=== PATIENT | female | born 1975 | race Caucasian/White ===

== ENCOUNTER → 2017-11-23 20:18 | Outpatient (REF) | payer BC, SELFPAY | LOC: LAB 20:18 | PROVIDERS: Visit Provider Nurse Practitioner Family | DX: J02.9 Acute pharyngitis, unspecified (principal) ==

== ENCOUNTER → 2021-08-05 15:22 | Outpatient (CLI) | payer BC, SELFPAY ==
--- NOTE | 2021-08-05 15:29 | MM_ITS ---
PROCEDURE INFORMATION: Exam: Bilateral Screening 3D Mammography Exam date and time: 08/05/2021 3:25 PM Age: 45 years old Clinical indication: Baseline. A maternal aunt had breast cancer. TECHNIQUE: Imaging protocol: Bilateral Screening tomosynthesis and 2D mammography including computer-aided detection (CAD) when performed. COMPARISON: No relevant prior studies available. FINDINGS: MAMMOGRAPHY: Breast composition: The breasts are heterogeneously dense, which may obscure small masses. Mass: Possible oval 1.0 partly circumscribed, partly imaged, mass in the right upper outer quadrant posterior 3rd, seen in the CC projection frame 35 and may project in the upper breast, MLO frame 36. Architectural distortion: None. Calcifications: No suspicious calcifications. Asymmetric density: None. Skin thickening: None. Axillary adenopathy: None. IMPRESSION: Patient to be recalled for right diagnostic spot compression in the CC projection, with full field true lateral, and right breast ultrasound for further evaluation of possible right breast mass. ASSESSMENT: BI-RADS Category 0: Incomplete- Need Additional Imaging Evaluation and/or Prior Mammograms for Comparison
== END ==
LOC: RAD 15:25 → RT 15:53
PROVIDERS: PCP Family Medicine; Visit Provider Obstetrics & Gynecology
DX: Z12.31 Encounter for screening mammogram for malignant neoplasm of breast (principal)
CPT/HCPCS: 77063; 77067

== ENCOUNTER → 2021-10-09 14:27 | Outpatient (CLI) | payer BC, SELFPAY ==
--- NOTE | 2021-10-09 14:35 | US_ITS ---
PROCEDURE INFORMATION: Exam: US Right Breast, Complete MG Right Diagnostic Breast Tomosynthesis Exam date and time: 10/09/2021 2:56 PM Age: 46 years old Clinical indication: Patient recalled on the basis of a screening mammogram for further evaluation; Right breast; mass TECHNIQUE: Imaging protocol: Complete ultrasound of all four quadrants of the Right breast and the retroareolar regions, including ultrasound of the axilla when performed. Right Diagnostic tomosynthesis and 2D mammography including computer-aided detection (CAD) when performed. Unilateral or bilateral exam. COMPARISON: MG MM DIG MAMM DX UNILAT RT CAD 10/09/2021 2:30 PM FINDINGS: MAMMOGRAPHY: digital diagnostic spot compression views of the right breast and 90 degree lateral view of the right breast demonstrates a persistent round 1.0 cm mass in the middle to posterior third of the right upper outer quadrant better seen in the craniocaudal projection. Questionable adjacent lobulated 1.2 cm mass in the posterior third of the right lateral breast lateral to the identified abnormality on mammography does not appear to persist on additional imaging. ULTRASOUND: Sonographic images of the right breast including the retroareolar region, all 4 quadrants and the axilla demonstrates a lobulated hypoechoic solid mass in the 10 o'clock axis 7 cm from the nipple questionably corresponding to the mass mammography. Few scattered subcentimeter cysts are noted throughout the right breast. No architectural distortion or acoustical shadowing. No skin thickening or axillary adenopathy. IMPRESSION: Indeterminate solid mass in the right upper outer quadrant. Given its partially circumscribed margins, ultrasound-guided core biopsy is recommended to ensure a benign etiology . Clip placement and post biopsy right mammogram are recommended to ensure accurate correlation. ASSESSMENT: BI-RADS Category 4: Suspicious
== END ==
PROVIDERS: PCP Family Medicine; Visit Provider Obstetrics & Gynecology
DX: R92.8 Other abnormal and inconclusive findings on diagnostic imaging of breast (principal)
CPT/HCPCS: 76641; 77061; 77065; G0279

== ENCOUNTER → 2021-10-31 08:18 | Outpatient (CLI) | payer BC, SELFPAY ==
--- NOTE | 2021-10-31 08:19 | US_ITS ---
FINAL REPORT CLINICAL HISTORY: Right breast nodule FINDINGS: ULTRASOUND-GUIDED RIGHT BREAST CORE BIOPSY TECHNIQUE: Limited images were obtained to localize region of interest. The right breast was prepped in a routine sterile fashion and locally anesthetized with 1% lidocaine. Standard written informed consent was obtained. The biopsy needle was positioned within the outer periphery of the lesion. A total of 3 passes were made with a 18 gauge core biopsy needle. Upon firing of the needle, images documented the needle passing through the nodule of interest. A biopsy marker clip was deployed in satisfactory position. Postbiopsy mammogram showed postbiopsy changes with clip in satisfactory position. Procedure was well tolerated . CONCLUSION: 1. Technically successful ultrasound guided core biopsy of right breast lesion as above. 2. Biopsy marker clip deployed Authenticated and ERN
--- NOTE | 2021-10-31 09:06 | MM_ITS ---
FINAL REPORT CLINICAL HISTORY: . clip placement s/p bx FINDINGS: MAMMOGRAM RIGHT TECHNIQUE: Standard digital 2-D views COMPARISON: Recent abnormal mammograms dated 10/09/2021 and 08/05/2021 DENSITY: The breasts are heterogeneously dense, which may obscure small masses. FINDINGS: Post biopsy marker clip is noted to be in satisfactory position associated with a partially obscured nodule in the posterior right breast at 10:00.. Postbiopsy changes are noted. IMPRESSION: Biopsy marker clip in good position RECOMMENDATION: Pending histopathology evaluation Authenticated and ERN
== END ==
PROVIDERS: PCP Family Medicine; Visit Provider Surgery
DX: R92.8 Other abnormal and inconclusive findings on diagnostic imaging of breast (principal); N63.11 Unspecified lump in the right breast, upper outer quadrant
CPT/HCPCS: 19083; 77065

== ENCOUNTER 2022-08-15 17:14 | Emergency (ER) | payer OTHER, BC, SELFPAY ==
[2022-08-15 17:14] VITALS: BP 147/89; PULSE 80; RESP 20; TEMP 36.8; O2SAT 98; BMI 24.9
--- NOTE | 2022-08-15 17:32 | PC.NURSE ---
FAST exam completed by attending. FAST is negative
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
[2022-08-15 17:48] LABS: Basophils # 0.1 K/mm3 (0-0.2); Basophils % 0.6 % (0.1-2.0); Eosinophils # 0.5 K/mm3 (0.0-0.4); Eosinophils % 4.6 % (0.1-12.0); Hematocrit 42.3 % (37.0-47.0); Hemoglobin 14.3 g/dL (12.2-16.2); Lymphocytes % 26.7 % (10-50); Mean Corpuscular HGB Conc 33.8 g/dL (31.8-35.4); Mean Corpuscular Hemoglobin 30.3 pg (27.0-31.2); Mean Corpuscular Volume 89.7 fl (81-99); Mean Platelet Volume 8.1 fl (7.4-10.4); Monocytes # 0.6 K/mm3 (0.1-1.0); Monocytes % 5.3 % (1.7-9.3); Neutrophils # 6.9 K/mm3 (1.8-7.8); Neutrophils % 62.8 % (37.0-80.0); Platelet Count 274 K/mm3 (142-424); Red Blood Count 4.72 M/mm3 (4.20-5.40); Red Cell Distribution Width 12.7 % (11.5-17.5)
[2022-08-15 17:53] LABS: Chloride 104 mmol/L (98-107)
[2022-08-15 17:54] LABS: Potassium 3.9 mmoL/L (3.5-5.1); Sodium 138 mmol/L (136-145)
[2022-08-15 17:56] LABS: Alanine Aminotransferase 32 U/L (12-78); Alkaline Phosphatase 61 U/L (38-126); Aspartate Amino Transferase 30 U/L (14-36); Bilirubin,Total 0.6 mg/dl (0.2-1.3); Blood Urea Nitrogen 13 mg/dl (7-17); Creatinine Clearance Estimated 93 mL/min (50-200); Estimated Glomerular Filt Rate 78 ml/min (>60); GFR (African American) 94 ML/MIN (>60)
[2022-08-15 17:57] LABS: Albumin Level 4.4 g/dl (3.5-5.0); Albumin/Globulin Ratio 1.4 (1.1-1.8); Amylase 87 U/L (30-110); Anion Gap 12.9 mEq/L (5-15); Calcium 8.8 mg/dl (8.4-10.2); Carbon Dioxide 25 mmol/L (22.0-30.0); Globulin 3.1 g/dL (1.3-3.2); Glucose 99 mg/dl (74-100); Lipase 105 U/L (23-300); Total Protein,Serum 7.5 g/dl (6.3-8.2)
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
[2022-08-15 19:18] VITALS: BP 132/84; PULSE 81; RESP 20; TEMP 36.7
== END 2022-08-15 19:24 | disposition home or self-care (01) ==
PROVIDERS: Emergency Provider Student in an Organized Health Care Education/Training Program; PCP Family Medicine
DX: S30.1XXA Contusion of abdominal wall, initial encounter (principal); V43.52XA Car driver injured in collision with other type car in traffic accident, initial encounter
CPT/HCPCS: 71275; 73110; 74174; 80053; 82150; 83690; 85025; 96361; 96374; 96375; 99285; J2405; Q9967

== ENCOUNTER → 2022-10-18 08:04 | Outpatient (CLI) | payer BC, SELFPAY ==
--- NOTE | 2022-10-18 08:09 | MR_ITS ---
PROCEDURE INFORMATION: Exam: MR Abdomen Without and With Contrast; Liver Exam date and time: 10/18/2022 8:31 AM Age: 47 years old Clinical indication: Abnormal findings; Abnormal radiologic finding of the abdomen; Radiologic exam and body structure: CT angio abdomen/pelvis; Additional info: Liver lesion showen on CT exam. 14 ml prohance given TECHNIQUE: Imaging protocol: MR Abdomen with and without intravenous contrast. Exam focused on the liver. Contrast material: PROHANCE; Contrast volume: 14 ml; Contrast route: IV; COMPARISON: CT ANGIO ABDOMEN PELVIS 08/15/2022 5:54 PM FINDINGS: Liver: There is a 1.3 cm T2 hyperintense lesion seen posteriorly in the right lobe. This enhances homogeneously on the early phase following contrast administration. No other liver lesions are identified. Gallbladder and bile ducts: Normal gallbladder. No biliary ductal dilatation. Pancreas: Normal. Kidneys and ureters: Normal kidneys. Visualized ureters are unremarkable. Intraperitoneal space: No free fluid. IMPRESSION: 1.3 cm right hepatic lesion with MR findings most consistent with a flash enhancing hemangioma.
== END ==
PROVIDERS: PCP Family Medicine; Visit Provider Family Medicine
DX: K76.9 Liver disease, unspecified (principal)
CPT/HCPCS: 74183; A9576

== ENCOUNTER 2024-09-14 14:59 | Outpatient (CLI) | payer BC, SELFPAY ==
--- OUTSIDE RECORDS SUMMARY | 2024-01-19 06:45 | XMS_ITS ---
Author Organization [facility] Address [address] [facility] [address] [place] [id number] Care Team Providers Care Mortgage Consultant Name Role Phone Kait Roach Primary Care Provider Evaristo Navarrete [phone] Allergies Allergen (clinical drug ingredient) Drug/Non Drug Allergy documented on EMR Reaction Allergy Type Onset Date Status amoxicillin Amoxicillin hives, itch Drug Allergy A ctive Results Component Value Reference Range Notes Urinalysis - Inhouse Reviewed date:01/19/2024 12:02:26 PM Interpretation: Performing Lab: Notes/Report: Color/Clarity yellow/cloudy Leuk 1+ Nitrite neg Urobili 16 Protein neg pH 6.0 Blood neg Sp. Gr. 1.020 Ketone neg Bili neg Gluc neg REASON FOR VISIT possible kidney infection Medications Medication SIG (Take, Route, Frequency, Duration) Notes Start Date End Date Status Mirena (52 MG) 20 MCG/DAY by intrauteral administration; Duration: 1 dose(s) Active Flonase Allergy Relief 50 MCG/ACT 1 spray(s) intranasally once a day 04/15/2017 Not-Taking Ciprofloxacin HCl 500 MG 1 tablet Orally every 12 hrs 01/19/2024 Active Meloxicam 15 MG 1 tablet Orally Once a day 01/19/2024 Active Problems Problem Type SNOMED Code ICD Code Onset Dates Problem Status W/U Status Risk Notes Problem Sacroiliitis (72894252) Sacroiliitis (M46.1) Active confirmed Vital Signs Blood pressure systolic 120 mm Hg 01/19/20 24 Blood pressure diastolic 84 mm Hg 024 Heart Rate 79 /min 01/19/2024 Height 60 in 01/19/2024 Weight 163 lbs 01/19/2024 BMI 31.83 kg/m2 01/19/2024 Encounters Encounter Location Date Provider Diagnosis [facility] [address] [facility] [address] [place] [id number] 01/19/2024 Evaristo Navarrete UTI (lower urinary tract infection) N39.0 and Sacroiliitis M46.1 Assessments Encounter Date Diagnosis (ICD Code) Assessment Notes Treatment Notes Treatment Clinical Notes Section Notes 01/19/2024 UTI (lower urinary tract infection) (ICD-10 - N39.0) 01/19/2024 Sacroiliitis (ICD-10 - M46.1) Findings on UA did not seem to be significant enough to account for her back pain. Likely has some inflammation of the SI joints. Plan Of Treatment Medication Medication Name Sig Start Date Stop Date Notes Ciprofloxacin HCl 500 MG 1 tablet Orally every 12 hrs 12/31 Meloxicam 15 MG 1 tablet Orally Once a day 01/19/2024 Treatment Notes Assessment Notes Sacroiliitis Findings on UA did n ot seem to be significant enough to account for her back pain. Likely has some inflammation of the SI joints. Next Appt Details Follow Up: 2 Weeks, Beryl hsieh son: Progress Notes * DANIELLE CARTAGENADOB:1975 (49 yo F)Acc No.[id number]:01/19/2024 Progress Notes Patient: DANIELLE PEREZ Provider: Evaristo Navarrete M.D. :1975 A ge:48 Y S ex:Female Date:01/19/2024 Address:[address] [place], [place] [id number] Pcp:Kait Roach Subjective: * Chief Complaints: * 1 . Possible kidney infection. * HPI: U rology: 48 year old female presents with c/o flank pain P t presents today with c/o pain in the right side that started about a month ago. Pt sts that the pain has moved down into her low back. Pt sts that the pain is sometimes dull but was sharp all night last night causing her to be unable to sleep. Pt sts that she is just not able to get any relief. Denies : frequent urination. D enies : burning sensation.?Denies : urgency. D enies : suprapubic pain. H PI: She started about a month ago with right flank pain with no history of injury. The pain was significant enough to limit her activity for a few days but but now seems to have settled into her lower back bilaterally but not as severe. It is not related to any particular activity and does not limit her activity. She denies dysuria, urgency, frequency, or hematuria. * ROS: D ERMATOLOGY: no R michael. n o H alannah. G ASTROENTEROLOGY: no N ausea. n o V omiting. n o D iarrhea.? U ROLOGY: no D ifficulty urinating. n o B lood in urine. * Medical History: R heumatic fever. * Surgical History: D &C . * Hospitalization/Major Diagno stic Procedure: [facility] ER-Chest Pains 07/02/08, [facility] ER Chest Pains 07/03/08. * Family History: F ather: alive, heart attack in 1997. M other: alive. 2 brother(s) , 2 sister(s) . .? * Social History: C URRENT TOBACCO USE S moking Status: Patient does NOT smoke. C affeine: yes, frequency: not regularly. Home smoke detector use: yes. Marital Status: . 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 Past smoking status: no, Smoking status: Does not smoke. Alcohol: Yes, Frequency: socially, very seldom. Sexually active: yes. Travel ouside [place]: no. * Medications: T aking Mirena (52 MG) 20 MCG/DAY Intrauterine Device by intrauteral administration , Not-Taking Flonase Allergy Relief 50 MCG/ACT Suspension 1 spray(s) intranasally once a day , Medication List reviewed and reconciled with the patient * Allergies: A moxicillin: hives, itch. Objective: * Vitals: W t:163, Temp:98.5, BP:120/84, HR:79, Nurse:KAROLINA, Ht: 60, BMI:31.83. * Examination: G eneral Examination: General Appearance: N AD. A bdomen: soft, nontender. B ack: B ack shows no deformity. No CVA tenderness to percussion. There is tenderness in the SI areas bilaterally. Range of motion is nearly full with some increased pain on full flexion.. Assessment: * Assessment: 1. U TI (lower urinary tract infection) - N39.0 (Primary) 2 . S acroiliitis - M46.1 Plan: * Treatment: Value Reference Range C olor/Clarity yellow/cloudy * L euk 1+ * N itrite neg * U robili 16 * P rotein neg * p H 6.0 * B lood neg * S p. Gr. 1.020 * K etone neg * B jackson neg * G tamica neg * Angela Wallace 01/19/2024 11: 07:27 AM > results reviewed w/ pt in office 2.?Sacroiliitis? Start Meloxicam Tablet, 15 MG, 1 tablet, Orally, Once a day, 15.?? Notes: Findings on UA did not seem to be significant enough to account for her back pain. Likely has some inflammation of the SI joints.?? * Procedure Codes: 8 1002 Urinalysis, no micro * Follow Up: 2 Weeks, prn * Images: Billing Information: * Visit Code: 31668 Office Visit, Est Pt., Level 4. * Procedure Codes: 26574 Urinalysis, no micro. * Electronic signature of Evaristo Navarrete MD on 09/14/2024 at 03:01 PM EDT Sign off status: Pending * Provider: Evaristo Navarrete M.D. Date: 03/20/2023 Generated for Wadei batsheva/Rosalba/eTransmitting on: 0 09/14/2024 03:01 PM EDT History and Physical Notes * HPI (History of Present Illness) Category Sub-Category Detail Notes Category Not es Urology frequent urination burning sensation flank pain Pt presents today wi th c/o pain in the right side that started about a month ago. Pt sts that the pain has moved down into her low back. Pt sts that the pain is sometimes dull but was sharp all night last night causing her to be unable to sleep. Pt sts that she is just not able to get any relief suprapubic pain urgency Examination Category Sub-Category Detail Notes Category Not es General Examination Abdomen: soft, nontender General Appearance: NAD Back: Back shows no deform ity. No CVA tenderness to percussion. There is tenderness in the SI areas bilaterally. Range of motion is nearly full with some increased pain on full flexion.
--- NOTE | 2024-09-14 15:00 | MM_ITS ---
PROCEDURE INFORMATION: Exam: MG Bilateral Screening 3D Mammography Exam date and time: 09/14/2024 3:08 PM Age: 49 years old Clinical indication: Screening exam TECHNIQUE: Imaging protocol: Bilateral Screening tomosynthesis and 2D mammography including computer-aided detection (CAD) when performed. COMPARISON: 1. MG MM CLIP PLACEMENT RT 10/31/2021 8:58 AM 2. MG MM DIG MAMM DX UNILAT RT CAD 10/09/2021 2:30 PM FINDINGS: MAMMOGRAPHY: Breast composition: The breasts are heterogeneously dense, which may obscure small masses. Mass: No suspicious masses. Architectural distortion: Post biopsy changes are noted in the right breast. Correlate with biopsy results which were not available for review at the time of interpretation of this exam. Calcifications: No suspicious calcifications. Asymmetric density: None. Skin thickening: None. Axillary adenopathy: None. IMPRESSION: No mammographic evidence of malignancy. Annual screening is recommended unless otherwise clinically indicated. ASSESSMENT: BI-RADS Category 2: Benign.
--- OUTSIDE RECORDS SUMMARY | 2024-09-14 15:01 | XMS_ITS | Patient Health Record ---
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 Name Role Phone Kait Roach Primary Care Provider Evaristo Navarrete Unavailable [phone] Nilam Barber Unavailable [phone] Allergies Allergen (clinical drug ingredient) Drug/Non Drug [...] 1.020 Ketone neg Bili neg Gluc neg Reason For Referral No Information Medications Medication SIG (Take, Route, Frequency, Duration) Notes Start Date End Date Status valACYclovir HCl 1 GM 2 tab Orally twice a day 05/04/2024 Active Mirena (52 MG) 20 MCG/DAY by intrauteral administration; Duration: 1 dose(s) Active Flonase Allergy Relief 50 MCG/ACT 1 spray(s) intranasally once a day 04/15/2017 Not-Taking Ciprofloxacin HCl 500 MG 1 tablet Orally every 12 hrs 01/19/2024 Active Meloxicam 15 MG 1 tablet Orally Once a day 01/19/2024 Active Immunizations Vaccine Route Administration Date Status Comme nts COVID 19 Moderna Unknown 03/21/2020 Administered COVID 19 Moderna Unknown 04/20/2020 Administered Fluzone PF Quad (6-35 months) Unknown 12/26/2019 Administered Fluzone Quad (6months&older) IM Intramuscular 01/15/2016 Administered Fluzone Quad (6months&older) IM Intramuscular 12/17/2017 Administered Fluzone Quad (6months&older) IM Intramuscular 01/07/2019 Pending Fluzone Quad (6months&older) IM Intramuscular 01/21/2021 Administered Given by Alyssa Shaffer Hepatitis A (adult) IM Intramuscular 06/18/2012 Administered Hepatitis A (adult) Unknown 02/11/2018 Administered ppd TD Transdermal 10/02/2009 Administered Tetanus Tdap-Adacel (over 7yrs) IM Intramuscular 06/18/2012 Administered Problems Problem Type SNOMED Code ICD Code Onset Dates Problem Status W/U Status Risk Notes Problem Rheumatic fever without heart involvement (59255404) Rheumatic fever without heart involvement (390) Active confirmed Problem Vitamin D deficiency (18694293) Vitamin D deficiency (E55.9) Active confirmed Problem Elevated liver enzymes level (172886184) Elevated liver enzymes (R74.8) Active confirmed Problem Chest discomfort (517000561) Chest discomfort (R07.89) Active confirmed Problem Chronic fatigue syndrome (04859240) Chronic fatigue (R53.82) Active confirmed Problem Sacroiliitis (33783589) Sacroiliitis (M46.1) Active confirmed Problem Lesion of liver (509025908) Liver lesion (K76.9) Active confirmed Vital Signs Heart Rate 79 /min 01/19/2024 Blood pressure diastolic 84 mm Hg 01/19/2024 Height 60 in 01/19/2024 Blood pressure systolic 120 mm Hg 01/19/2024 Weight 163 lbs 01/19/2024 BMI 31.83 kg/m2 01/19/2024 Encounters Encounter Location Date Provider Diagnosis [facility] [address] [facility] [address] [facility] [address] [place] [phone] 01/19/2024 R Dionicio Navarrete UTI (lower urinary tract infection) N39.0 and Sacroiliitis M46.1 [facility] [address] [place] [phone] 05/04/2024 Nilam Barber Assessments Encounter Date Diagnosis (ICD Code) Assessment Notes Treatment Notes Treatment Clinical Notes Section Notes 01/19/2024 UTI (lower urinary tract infection) (ICD-10 - N39.0) 01/19/2024 Sacroiliitis (ICD-10 - M46.1) Findings on UA did not seem to be significant enough to account for her back pain. Likely has some inflammation of the SI joints. Plan Of Treatment No Information Insurance Providers Payer Name Payer Address Payer Phone Subscriber Number Group Number Insured Name Patient Relationship to Insured Coverage Start Date Coverage End Date [facility] [id number] [place] [address] [id number] DEWAYNE DANIELLE Self - patient is the insured Medications Administered Medication Instructions Date of Administration Dosage Notes B-12 06/27/2015 1 mL Medical (General) History Medical History History ICD Code rheumatic fever Surgical History Surgery Date(Month/Year) D&C Hospitalization History Reason Date(Month/Year) [facility] ER Chest Pains 07/03/08 [facility] ER-Chest Pains 07/02/08
[2024-09-14 17:13] LABS: Hepatitis C Ab Qual. W/ RFX NEGATIVE (Negative)
[2024-09-15 10:25] LABS: Hepatitis B Surface Antigen Negative (Negative)
== END 2024-09-14 23:59 | disposition home or self-care (01) ==
PROVIDERS: PCP Family Medicine; Visit Provider Obstetrics & Gynecology
DX: Z12.31 Encounter for screening mammogram for malignant neoplasm of breast (principal); R92.333 Mammographic heterogeneous density, bilateral breasts; Z11.3 Encounter for screening for infections with a predominantly sexual mode of transmission
CPT/HCPCS: 36415; 77063; 77067; 80074; 87340; 87389